=== PATIENT | male | born 1970 | race Caucasian/White ===

== ENCOUNTER → 2018-01-16 | Emergency (ER) | payer OTHER ==
[~2018-01-16] VITALS: Ht 165.1 cm; Wt 113.4 kg
[~2018-01-16] MED LIST: ADULT ASPIRIN81 MG; CATAFLAM50 MG PO; DICY20TA; HUMULIN 70100 UNIT/2; INSULINA; KETO10TA2 PO; LANTUS SOL100 UNIT/1; LISINOPRIL10 MG; OMEPRAZOLE20 MG; PROTONIX40 M1; RANITIDINE HCL300 M1
== END | disposition home or self-care (01) ==
LOC: ER 11:50
DX: R10.13 Epigastric pain (principal)

== ENCOUNTER 2021-02-28 02:03 | Emergency (ER) | payer OTHER ==
[~2021-02-28] VITALS: Ht 165.1 cm; Wt 1009.2 kg
[2021-02-28] MEDS ORDERED: LEVSIN/SL0.125 MG SL (08:34)
[2021-02-28] MEDS ORDERED: INTESTINEX680 M1 PO (08:34)
[2021-02-28] MEDS ORDERED: ZOFRAN8 MG PO (08:34)
[2021-02-28] MEDS ORDERED: PEPCID40 MG PO (08:34)
== END 2021-02-28 09:08 ==
LOC: ER 02:03
DX: K52.89 Other specified noninfective gastroenteritis and colitis (principal); Z03.818 Encounter for observation for suspected exposure to other biological agents ruled out

== ENCOUNTER → 2025-04-26 | Emergency (ER) | payer OTHER ==
[~2025-04-26] VITALS: Ht 165.1 cm; Wt 104.3 kg
[~2025-04-26] MED LIST changes: +0.9 % SODIUM CHLORIDE 1,000 ML IV ONE; +ACETAMINOPHEN 500 MG GEL..CAP PO ONE; +ACETAMINOPHEN 500 MG GEL..CAP PO STA; +ATORVASTATIN CA10 MG PO; +CHILDREN'S ASPI81 MG PO; +CLONIDINE HCL 0.1 MG TABLET PO ONE; +CLONIDINE HCL 0.1 MG TABLET PO STA; +HUMALOG100 UNIT/2 SQ; +INTESTINEX680 M1 PO; +JARDIANCE10 MG PO; +LANTUS SOL100 UNIT/1 SQ; +LEVSIN/SL0.125 MG SL; +PEPCID40 MG PO; +ZESTRIL2.5 MG PO; +ZOFRAN8 MG PO
[2025-04-27 07:56] VITALS: BP 160/66; O2SAT 98
== END | disposition designated cancer center or children's hospital (05) ==
LOC: ER
DX: S06.5X9A Traumatic subdural hemorrhage with loss of consciousness of unspecified duration, initial encounter (principal); S00.93XA Contusion of unspecified part of head, initial encounter; S60.211A Contusion of right wrist, initial encounter; W18.39XA Other fall on same level, initial encounter; Y93.E1 Activity, personal bathing and showering; Y92.012 Bathroom of single-family (private) house as the place of occurrence of the external cause; Y99.9 Unspecified external cause status; E11.9 Type 2 diabetes mellitus without complications; Z79.4 Long term (current) use of insulin; Z79.84 Long term (current) use of oral hypoglycemic drugs; I10 Essential (primary) hypertension